=== PATIENT | male | born 1970 | race Two or more races ===

== ENCOUNTER 2020-08-15 01:03 | Emergency (ER) | payer OTHER ==
[~2020-08-15] VITALS: Ht 182.9 cm; Wt 133.8 kg
[2020-08-15 05:01] VITALS: BP 158/99
== END 2020-08-15 06:10 | disposition home or self-care (01) ==
LOC: ER 01:05
DX: S62.661A Nondisplaced fracture of distal phalanx of left index finger, initial encounter for closed fracture (principal); S61.311A Laceration without foreign body of left index finger with damage to nail, initial encounter; S67.191A Crushing injury of left index finger, initial encounter; I10 Essential (primary) hypertension; W31.89XA Contact with other specified machinery, initial encounter; Y93.89 Activity, other specified; Y92.89 Other specified places as the place of occurrence of the external cause; Y99.8 Other external cause status
CPT/HCPCS: 12002; 73130